=== PATIENT | male | born 1950 | race Caucasian/White ===

== ENCOUNTER 2018-09-12 11:54 | Emergency (ER) | payer OTHER, MEDICARE ==
[~2018-09-12] VITALS: Ht 185.4 cm; Wt 99.8 kg
[~2018-09-12 11:54] MED LIST: DILAUDID4 MG PO; LIPITOR20 MG PO; PHENERGAN25 MG PO
== END 2018-09-12 13:10 | disposition home or self-care (01) ==
LOC: ED 11:54
PROC: 0HQFXZZ Repair Right Hand Skin, External Approach (ICD-10-PCS; principal; 2018-09-12)
DX: S61.411A Laceration without foreign body of right hand, initial encounter (principal); E78.5 Hyperlipidemia, unspecified; Z88.0 Allergy status to penicillin; Z79.899 Other long term (current) drug therapy; W45.8XXA Other foreign body or object entering through skin, initial encounter
CPT/HCPCS: 12002; 99282-25

== ENCOUNTER 2018-09-22 10:20 | Emergency (ER) | payer OTHER, MEDICARE ==
[~2018-09-22] VITALS: Ht 185.4 cm; Wt 99.8 kg
--- OUTSIDE RECORDS SUMMARY | 2018-09-22 10:22 | XMS ---
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 E.D. VISIT COUNT (12 MO.) [address] [facility] TOTAL 2 NOTE: Visits indicate total known visits. ED/UCC VISIT TRACKING (12 MO.) 09/22/2018 10:21 [facility] [place] TYPE: Emergency COMPLAINT: - STITCHES REMOVAL 09/12/2018 11:55 KARLA Simon [place] TYPE: Emergency COMPLAINT: - R THUMB LACERATION DIAGNOSES: - Other foreign body or object entering through skin, initial encounter - Hyperlipidemia, unspecified - Allergy status to penicillin - Laceration without foreign body of right hand, initial encounter - Other buttermaker (current) drug therapy INPATIENT VISIT TRACKING (12 MO.) No inpatient visits to display in this time frame [email or web address]
== END 2018-09-22 10:49 | disposition home or self-care (01) ==
LOC: ED 10:20
DX: Z48.02 Encounter for removal of sutures (principal)

== ENCOUNTER 2019-03-04 07:48 | Day surgery (SDC) | payer OTHER ==
[~2019-03-04] VITALS: Ht 185.4 cm; Wt 99.8 kg
[~2019-03-04 07:48] MED LIST changes: +CRESTOR20 MG PO; +FAMOTIDINE20 MG PO; +FLOMAX0.4 MG PO; +PREDNISONE20 MG PO
--- NOTE | 2019-03-04 09:14 | NUR ---
03/04/19 0914 Fiordaliza Bee 0975 PT ARRIVED TO PACU ON 3L VIA NC, ABD SOFT. PT ENCOURAGED TO PASS GAS. PT REORIENTED TO PACU, PT WAKES EASILY AND EASILY FALLS BACK TO SLEEP. VSS.
--- NOTE | 2019-03-04 10:25 | OR ---
[facility] [address] [place], [place] [address] Signed DATE OF OPERATION: 03/04/2019 SURGEON: Abel Worthington MD PREOPERATIVE DIAGNOSES: 1. Hyperplastic polyps in 2008. 2. Internal hemorrhoids. POSTOPERATIVE DIAGNOSES: 1. Minimal sigmoid diverticulosis. 2. Minimal internal anal skin tags/hemorrhoids. 3. 4-5 mm polyps in cecum, proximal right colon, mid right colon, hepatic flexure, and 95 cm. PROCEDURE: Colonoscopy with hot biopsy. ESTIMATED BLOOD LOSS: None. INDICATIONS: Catalino is a 69-year-old gentleman who comes for followup colonoscopy. He had several small hyperplastic polyps removed back in 2008. He is known to have some internal hemorrhoids. There is no family history of colon cancer or polyps. He has no lower GI complaints. In the office, I gave him a pamphlet on colonoscopy and we reviewed that together. He understands the nature of the test along with the risks including, but not limited to gas, bloating, crampy abdominal pain, bleeding, perforation requiring surgery, and missed diagnosis. He also recalls the need for IV conscious sedation. He had expressed understanding and wished to proceed. PROCEDURE NOTE: Catalino was taken into endoscopy suite and placed in the left lateral decubitus position. He was given a total of 7 mg of Versed and 150 mcg of fentanyl to cover the case. A digital rectal exam was performed. He does have a moderately indurated and swollen prostate. No dominant nodules. The adult colonoscope was introduced and advanced all around into the cecum under direct visualization of camera without difficulty. The scope was slowly withdrawn. His prep was good. We could see the appendiceal orifice and the ileocecal valve. We took pictures throughout for photodocumentation. The above-mentioned polyps were easily removed with the help of hot biopsy forceps. We thought we saw a tiny polyp in the proximal left colon, but with some insufflation, the Electronically Signed By: ABEL WORTHINGTON MD 03/04/19 1025 PATIENT NAME: CATALINO RODRIGUEZ OPERATIVE REPORT DATE OF : 48 REPORT #: [id number] PHYSICIAN: ABEL WORTHINGTON MD PCP: DAVID ROMERO MD REPORT IS CONFIDENTIAL AND NOT TO BE RELEASED WITHOUT AUTHORIZATION [facility] [address] [place] [address] Signed area flattened out and it appeared fine. He does have just a few diverticula in the sigmoid colon. They were [id number] in size, few in number, and scattered about. Once in the rectum, the scope had been retroflexed. He has really small internal anal skin tags and very small internal anal hemorrhoid columns. After this, the gas was suctioned out and colonoscope removed. Catalino tolerated the procedure quite well. RECOMMENDATIONS: I will see Catalino back in my office in 7 to 14 days to review his results. Abel Worthington MD ALB/MELITONL /[id number] cc: MD David Santillan MD Copies: ABEL WORTHINGTON MD ~ Electronically Signed By: ABEL WORTHINGTON MD 03/04/19 1025 PATIENT NAME: CATALINO RODRIGUEZ OPERATIVE REPORT DATE OF : 48 REPORT #: [id number] PHYSICIAN: ABEL WORTHINGTON MD PCP: DAVID ROMERO MD REPORT IS CONFIDENTIAL AND NOT TO BE RELEASED WITHOUT AUTHORIZATION
--- NOTE | 2019-03-04 12:05 | NUR ---
PT ALERT, ORIENTED AND IN FOR ROUTINE SCOPE. PT SEEMS RELAXED, OR STAFF IN TO TAKE PT. EXTENDED A BLESSING, WILL FOLLOW NEEDED
--- NOTE | 2019-03-05 15:38 | PATH ---
[facility] [address] [place], [place] [address] Signed SPECIMEN(S): A PROXIMAL ASCENDING POLYP SPECIMEN(S): B CECAL POLYP SPECIMEN(S): C MID ASCENDING POLYP SPECIMEN(S): D HEPATIC FLEXURE POLYP SPECIMEN(S): E COLON POLYP AT 95 CM SPECIMEN SOURCE: A. PROXIMAL ASCENDING POLYP B. CECAL POLYP C. MID ASCENDING POLYP D. HEPATIC FLEXURE POLYP E. COLON POLYP AT 95 CM CLINICAL HISTORY: Polyps. Post: Divertic. MICROSCOPIC DESCRIPTION: Histologic sections of all submitted blocks are examined by light microscopy. These findings, together with the gross examination, support the pathologic diagnosis. FINAL PATHOLOGIC DIAGNOSIS: A. Proximal ascending polyp, polypectomy: - Fragments of tubular adenoma with abundant cautery artifact. B. Cecal polyp, polypectomy: - Fragments of irritated tubular adenoma. C. Mid ascending polyp, polypectomy: - Tubular adenoma. D. Hepatic flexure polyp, polypectomy: - Tubular adenoma. E. Colon polyp at 95 cm, polypectomy: - Benign colonic mucosa; see comment. - Negative for dysplasia. COMMENT: Deeper levels were evaluated with similar findings. DDF:cml:C2NR GROSS DESCRIPTION: A. The specimen is received in a formalin filled specimen container labeled "ET, #1". Six small pale laughlin biopsies are 0.1-0.3 cm and entirely submitted in cassette (A1). PATIENT NAME: JENNIFERCATALINO MARIFER PATHOLOGY DATE OF : 48 REPORT #: [id number] PHYSICIAN: DOTTY PATHOLOGY PCP: DAVID ROMERO MD REPORT IS CONFIDENTIAL AND NOT TO BE RELEASED WITHOUT AUTHORIZATION [facility] [address] [place], [place] [address] Signed B. The specimen is received in a formalin filled specimen container labeled "ET, #2". Two laughlin biopsies are each 0.3 cm and entirely submitted in cassette (B1). C. The specimen is received in a formalin filled specimen container labeled "ET, #3". A single laughlin biopsy is 0.3 cm and entirely submitted in cassette (C1). D. The specimen is received in a formalin filled specimen container labeled "ET, #4". A single laughlin biopsy is 0.3 cm and entirely submitted in cassette (D1). E. The specimen is received in a formalin filled specimen container labeled "ET, #5". A single laughlin biopsy is 0.2 cm and entirely submitted in cassette (E1). GW (under the direct supervision of a pathologist) The Gross Description was prepared using a voice recognition system. The report was reviewed for accuracy; however, sound-alike word errors, addition and/or deletions may occur. If there is any question about this report, please contact Client Services. PERFORMING LABORATORY: The technical component was performed by [facility], [address] [place] [address] (Engineering Geologist: Bozena Murphy MD; CLIA# [id number]). [facility], [address] [place] [address] (Engineering Geologist: Taiwo Valdes MD; CLIA# [id number]). Diagnostician: Hipolito York DO Pathologist Electronically Signed 03/05/2019 Copies: ~ PATIENT NAME: CATALINO RODRIGUEZ PATHOLOGY DATE OF : 48 REPORT #: [id number] PHYSICIAN: DOTTY PATHOLOGY PCP: DAVID ROMERO MD REPORT IS CONFIDENTIAL AND NOT TO BE RELEASED WITHOUT AUTHORIZATION
== END 2019-03-04 09:55 | disposition home or self-care (01) ==
LOC: OPS 07:48 → DS 10:30 → OPS 10:30
PROVIDERS: Colon & Rectal Surgery
PROC: 0DBH8ZZ Excision of Cecum, Via Natural or Artificial Opening Endoscopic (ICD-10-PCS; 2019-03-04)
PROC: 0DBL8ZZ Excision of Transverse Colon, Via Natural or Artificial Opening Endoscopic (ICD-10-PCS; 2019-03-04)
PROC: 0DBE8ZZ Excision of Large Intestine, Via Natural or Artificial Opening Endoscopic (ICD-10-PCS; 2019-03-04)
PROC: 0DBK8ZZ Excision of Ascending Colon, Via Natural or Artificial Opening Endoscopic (ICD-10-PCS; principal; 2019-03-04 09:00)
DX: Z12.11 Encounter for screening for malignant neoplasm of colon (principal); D12.2 Benign neoplasm of ascending colon; D12.0 Benign neoplasm of cecum; D12.3 Benign neoplasm of transverse colon; K57.30 Diverticulosis of large intestine without perforation or abscess without bleeding; K64.8 Other hemorrhoids; K64.4 Residual hemorrhoidal skin tags; I10 Essential (primary) hypertension; E78.00 Pure hypercholesterolemia, unspecified; E11.9 Type 2 diabetes mellitus without complications; Z86.010 Personal history of colon polyps; Z79.899 Other long term (current) drug therapy; Z79.52 Long term (current) use of systemic steroids; Z98.890 Other specified postprocedural states; Z88.0 Allergy status to penicillin; Z88.5 Allergy status to narcotic agent
CPT/HCPCS: 99153; G0500; J2250; J3010; J7121

== ENCOUNTER 2021-12-25 10:02 | Emergency (ER) | payer OTHER, MEDICARE ==
[~2021-12-25] VITALS: Ht 185.4 cm; Wt 102.0 kg
[2021-12-25] MEDS ORDERED: PROSCAR5 MG PO (10:41)
[2021-12-25] MEDS ORDERED: PERCOCET 5-3251 EACH PO (13:48)
[2021-12-25] MEDS ORDERED: CEFUROXIME500 MG PO (13:48)
[2021-12-25] MEDS ORDERED: ONDANSETRON HCL4 MG PO (13:52)
== END 2021-12-25 14:55 | disposition home or self-care (01) ==
LOC: ED 10:02
DX: N13.2 Hydronephrosis with renal and ureteral calculous obstruction (principal); E78.5 Hyperlipidemia, unspecified; Z88.0 Allergy status to penicillin; Z88.5 Allergy status to narcotic agent; Z79.899 Other long term (current) drug therapy; Z79.52 Long term (current) use of systemic steroids
CPT/HCPCS: 36415; 74176; 80053; 81001; 83690; 85025; 96361; 96365; 96375; 96376; 99284-25; J0696; J1885; J2405; J7030

== ENCOUNTER 2022-05-29 06:50 | Day surgery (SDC) | payer OTHER ==
[~2022-05-29] VITALS: Ht 185.4 cm; Wt 102.3 kg
[~2022-05-29 06:50] MED LIST changes: +CEFUROXIME500 MG PO; +ONDANSETRON HCL4 MG PO; +PERCOCET 5-3251 EACH PO; +PROSCAR5 MG PO; +SULFAMETHOXAZO1 EAC1 PO
--- NOTE | 2022-05-29 10:00 | NUR ---
05/29/22 Liset Aguilar 0954- PT ARRIVES TO PACU NONAROUSABLE TO STIMULI WITH AN OPA IN PLACE. RESP EVEN AND UNLABORED. OXYGEN SAT HIGH 90'S TO 100% ON 10L VIA MASK. PT NEEDING A CHIN LIFT TO MAINTAIN PATENT AIRWAY. 0955- WHEN ATTEMPTING TO REPOSITION PT'S HEAD TO MAINTAIN PATENT AIRWAY WITHOUT CHIN LIFT. THE PT AROUSES. OPA REMOVED. OXYGEN MASK REPLACED AT 6L. 0957- PT PULLING AT HIS OXYGEN MASK. OXYGEN MASK REMOVED TO CALM PT OXYGEN SAT IS HIGH 90'S TO 100% ON THE 6L.
--- NOTE | 2022-05-29 10:37 | NUR ---
1030: PT ARRIVES TO DS TREATMENT ROOM VIA STRETCHER AWAKE AND ALERT. PT DENIES ANY PAIN OR NAUSEA, TOLERATES WATER. PT SPOUSE, MAXINE AT BEDSIDE ON ARRIVAL. DR. MORENO IN TO ASSESS URINE, VERBALLY ORDERS FOR CARUSO CATHETER TO BE REMOVED. WOULD LIKE 180 MLS OF SALINE INSERTED IN TO BLADDER TO HELP WITH URGE TO VOID. CALL LIGHT WITHIN REACH.
--- NOTE | 2022-05-29 10:55 | NUR ---
PT ALERT, ORIENTED AND PATIENTLY WAITING FOR SURGERY. PT HAS HAD SURGERY POSTPONED TWICE BEFORE AND IS READY FOR IT TO HAPPEN. PT HOPES THIS WILL END HIS CHRONIC UTI'S THAT HAVE PLAGUED HIM FOR YEARS. HAD PRAYER WITH PT, [place] AT [place]. WILL FOLLOW
--- NOTE | 2022-05-29 11:08 | NUR ---
1100: 180 ML NS INSTILLED INTO BLADDER VIA CARUSO, PT TOLERATES WELL WITH NO PAIN. CARUSO BALLOON EMPTIED OF 9 MLS CLEAR FLUID AND GENTLY REMOVED. PT ENCOURAGED TO USE CALL LIGHT WITH URGE TO VOID, DC CRITERIA EXPLAINED TO PT AND FAMILY AT BEDSIDE.
--- NOTE | 2022-05-29 13:44 | NUR ---
[id number]: PT UP TO BATHROOM TO VOID, UNSUCCESSFUL AT THIS TIME. PT STATES "I HAVE HAD 8 CUPS OF WATER NOW." PT ADMITS TO FILLING WATER IN ROOM TO HELP VOID. PT BLADDER SCANNED OF [address] MORENO CALLED WHO VERBALLY ORDERS FOR PT TO RECEIVE 20 ESTON[address] 2-WAY CATHETER AND TO RETURN TOMORROW TO HAVE REMOVED AFTER 24 HOURS. 1219: IN TO PLACE CARUSO CATHETER AND PT SHOWS THIS RN URINAL WITH APPROX 100 MLS LIGHT PINK URINE WITH NO CLOTS PRESENT. THIS RN PHONES DR. MORENO AGAIN WHO STATES THAT PT CAN GO HOME WITH OR WITHOUT CATHETER LONG EDUCATION IS PROVIDED THAT IF HE DOES NOT VOID QS BY 1730 THAT HE NEEDS TO RETURN TO EMERGENCY DEPT TO HAVE CARUSO PLACED. PT UNDERSTANDS AND DENIES CATHETER AT THIS TIME. 1240: PT ABLE TO VOID ANOTHER 100MLS LIGHT PINK URINE WITH NO CLOTS PRESENT. PT DRESSES SELF WITH SPOUSE AT BEDSIDE. DC INSTRUCTIONS PRESENTED VERBALLY AND WRITTEN AND PT DC FROM DS TREATMENT ROOM VIA TO HOME.
--- NOTE | 2022-05-30 16:09 | OR ---
[facility] [address] [place], [place] [address] Signed DATE OF OPERATION: 05/29/2022 SURGEON: Isabella Moreno MD PREOPERATIVE DIAGNOSIS: Bilobar prostatic hyperplasia with lower urinary tract symptoms. POSTOPERATIVE DIAGNOSIS: Bilobar prostatic hyperplasia with lower urinary tract symptoms. NAMES OF PROCEDURES: 1. Diagnostic cystoscopy. 2. UroLift implantation. ANESTHESIA: General. ESTIMATED BLOOD LOSS: 20 mL. COMPLICATIONS: None. SPECIMENS: None. DRAINS: A 20-Cymraes two-way Israel catheter, connected to gravity drainage. INDICATIONS FOR PROCEDURE: Mr. Rodriguez is a very pleasant 72-year-old gentleman, who is well-known to me. He has a history of high-grade bladder cancer along with active BPH with LUTS for which he currently takes both Flomax and finasteride. He underwent cystoscopy late last year, which revealed moderate lateral lobe hypertrophy with a mildly elevated bladder neck. There is no evidence of median lobe at the time. The patient does experience active lower urinary tract symptoms, so he was offered UroLift implantation once his bladder tumor was removed. He is anticipating intravesical BCG treatment approximately three months after his UroLift placement today. After discussion of risks and benefits of the UroLift implantation, the patient has agreed to proceed. Electronically Signed By: ISABELLA MORENO MD 05/30/22 1609 PATIENT NAME: CATALINO RODRIGUEZ OPERATIVE REPORT DATE OF : 48 REPORT #: [id number] PHYSICIAN: ISABELLA MORENO MD PCP: DAVID ROMERO MD REPORT IS CONFIDENTIAL AND NOT TO BE RELEASED WITHOUT AUTHORIZATION [facility] [address], [place] [address] Signed OPERATIVE FINDINGS: 1. Digital rectal examination reveals a 55 g gland that is soft, smooth and symmetric with no focal nodules. 2. Diagnostic cystoscopy reveals grade 3 bladder wall trabeculation. However, there is no evidence of any active bladder masses or lesions. Bilateral ureteral orifices are in their normal anatomic location. 3. Ureteroscopy reveals moderate lateral lobe stenosis with no evidence of a median lobe. He does have mild bladder neck elevation. The prostate tissue is a bit friable with manipulation. 4. The UroLift implant was placed in the standard procedure, with a total of two implants placed on the right and three implants on the left. The implants were placed approximately 1.5 cm from the bladder neck and they were spaced evenly from that point to the level of the verumontanum. DESCRIPTION OF PROCEDURE: After informed consent was obtained, the patient was taken back to the operating room. He was correctly identified with a surgical pause after general anesthesia was induced. Details of the procedure and laterality were confirmed. His genitalia were prepped and draped in a standard sterile fashion. A 20-Cymraes cystoscope was inserted into the urethral meatus, guided by visual obturator. Inspection of the prostatic urethra was notable for the obstruction present as a result of the enlarged lateral lobes. The visual obturator was replaced with a UroLift 2 system delivery device. The 1st treatment site was the patient's left side, approximately 1.5 cm distal to the bladder neck. UroLift 2 implantation steps were completed as indicated in the product documentation. The capsular tab was successfully deployed, the urethral end-piece was successfully affixed to the suture, and the suture was cut. The delivery device was then readvanced into the bladder and then removed from the sheath and the patient. The implant cartridge was removed from the delivery device, replaced with the scope seal, and the assembled device was reinserted. The implant located and opening effect was confirmed cystoscopically. The same steps of the procedure were then performed on the right side, approximately 1.5 cm from the bladder neck, followed by two additional implants just proximal to the verumontanum, one on the right and one on the left side of the prostate, following the indicated implantation technique. In all, a total of two implants were placed on the right and three implants were placed on the left. A final cystoscopy was conducted, 1st to inspect the location and state of each implant, and 2nd to confirm the presence of a continuous anterior channel from the verumontanum to bladder neck. Because there was a mild amount of bleeding present after the procedure, the decision was made to insert an indwelling Israel catheter. A 20-Cymraes two-way Israel catheter was inserted into the patient's bladder and was manually flushed multiple times. The catheter was then connected to gravity drainage. The procedure was then terminated. The patient tolerated the procedure well without any complication. He will now be transferred to the postanesthesia care unit in stable condition. Electronically Signed By: ISABELLA MORENO MD 05/30/22 1609 PATIENT NAME: CATALINO RODRIGUEZ OPERATIVE REPORT DATE OF : 48 REPORT #: [id number] PHYSICIAN: ISABELLA MORENO MD PCP: DAVID ROMERO MD REPORT IS CONFIDENTIAL AND NOT TO BE RELEASED WITHOUT AUTHORIZATION [address] [address] Signed DISPOSITION: I discussed the details of today's procedure with the patient's and answered all of her questions. He has been instructed to finish out his existing Bactrim Double Strength oral antibiotic prescription for the next few days. He was also given prescriptions for Pyridium 200 mg up to t.i.d. p.r.n. dysuria and oxycodone 5 mg one tablet p.o. q.6 hours p.r.n. pain, dispense #10. We will keep an eye on his urine today and hopefully remove the indwelling Israel catheter before his discharge today. If not, he will be sent home with the Israel catheter gravity drainage and will remove the catheter himself tomorrow with proper instruction. He has been scheduled to return to clinic in approximately two weeks with a PVR for his 1st postoperative visit. MD LUNA Alegre/MARCELLA /[id number] Copies: ~ Electronically Signed By: ISABELLA MORENO MD 05/30/22 1609 PATIENT NAME: CATALINO RODRIGUEZ OPERATIVE REPORT DATE OF : 48 REPORT #: [id number] PHYSICIAN: ISABELLA MORENO MD PCP: DAVID ROMERO MD REPORT IS CONFIDENTIAL AND NOT TO BE RELEASED WITHOUT AUTHORIZATION
== END 2022-05-29 13:02 | disposition home or self-care (01) ==
LOC: DS 06:50
PROVIDERS: ATTEND Urology
PROC: 0T7D8DZ Dilation of Urethra with Intraluminal Device, Via Natural or Artificial Opening Endoscopic (ICD-10-PCS; principal; 2022-05-29 08:30)
DX: N40.1 Benign prostatic hyperplasia with lower urinary tract symptoms (principal); N13.8 Other obstructive and reflux uropathy; R39.14 Feeling of incomplete bladder emptying; N20.0 Calculus of kidney; N20.1 Calculus of ureter
CPT/HCPCS: 81001; J0690; J1100; J1885; J2250; J2405; J2704; J2765; J3010; J7121

== ENCOUNTER 2024-06-10 07:06 | Day surgery (SDC) | payer OTHER ==
[~2024-06-10] VITALS: Ht 185.4 cm; Wt 101.2 kg
[~2024-06-10 07:06] MED LIST changes: +CRESTOR10 MG PO; +IBLOOD GLUCOSE TEST STRIP 1 EA TEST VI PRN; +LACTATED RINGER'S 1,000 ML IV SCH; +LIDOCAINE HCL 1% 5 ML SDV INJ ONE; +MIDAZOLAM HCL 5 MG/5 ML VIAL IV PRN; +ROSUVASTATIN CA20 MG PO; +fentaNYL citrate 100 MCG/2 ML VIAL IV PRN
[2024-06-10 07:23] VITALS: BP 117/76
--- NOTE | 2024-06-10 07:45 | NUR ---
VISITED DURING SPIRITUAL CARE ROUNDS. PT IN OVERALL GOOD SPIRITS, NO IMMEDIATE NEEDS. THEATER TECHNICIAN PROVIDED SUPPORTIVE PRESENCE, HOSPITALITY, PRAYER, FACILITATED INTERACTION WITH THERAPY ANIMAL. PT EXPRESSED GRATITUDE.
[2024-06-10] MEDS ORDERED: MIDAZOLAM HCL 5 MG/5 ML VIAL ONE (08:04)
[2024-06-10] MEDS ORDERED: fentaNYL citrate 100 MCG/2 ML VIAL ONE (08:04)
--- NOTE | 2024-06-10 08:52 | NUR ---
06/10/24 0852 Esha Tena 0842 PT ARRIVED IN PACU SLEEPY. ABD SOFT AND PASSING FLATUS.
[2024-06-10 09:18] VITALS: BP 96/69
--- NOTE | 2024-06-10 10:36 | OR ---
[facility] [address] [place], [place] [address] Signed DATE OF OPERATION: 06/10/2024 SURGEON: Abel Worthington MD PREOPERATIVE DIAGNOSES: 1. Personal history of adenomatous polyps in 2019 at age 69. 2. Internal hemorrhoids. 3. Internal anal skin tags. 4. Diverticulosis. 5. Positive Cologuard test in the summer of 2023. POSTOPERATIVE DIAGNOSES: 1. Minimal internal hemorrhoids. 2. Minimal internal anal skin tags. 3. Minimal to moderate left-sided diverticulosis. 4. 4 mm polyp at 15 cm in rectum. 5. 4 mm polypoid lesion at 45 cm in the left colon. PROCEDURE: Colonoscopy with hot biopsy. ESTIMATED BLOOD LOSS: None. INDICATIONS: Catalino is a 74-year-old gentleman, asked to see me for a followup colonoscopy. He describes a negative sigmoidoscopy and a negative barium enema when he was younger. He had a colonoscopy in 2008 at the age of 58 with myself. He had several tiny hyperplastic polyps removed. He had done well with Versed and fentanyl. He had minimal internal hemorrhoids. We asked him to follow up in 10 years. He came in 2019 at the age of 69. He had three small tubular adenomatous polyps removed, all under 5 mm in diameter. He had the internal hemorrhoids along with some minimal internal anal skin tags. He had some sigmoid diverticulosis as well. He did well with 7 mg of Versed and 50 mcg of fentanyl. We asked him to follow up in 5 years. Last summer, he had a positive Cologuard test. He has no family history of colon cancer or polyps. He has no lower GI complaints currently. In the office, I gave him a pamphlet on colonoscopy. He recalls the nature of the test. There is risk including, but not limited to gas bloating, crampy abdominal pain, bleeding, perforation requiring surgery and missed diagnosis. We also reviewed the written instructions for a bowel prep line by line. He has been on the same bowel prep now several times. He recalls the need for IV conscious Electronically Signed By: ABEL WORTHINGTON MD 06/10/24 1036 PATIENT NAME: CATALINO RODRIGUEZ OPERATIVE REPORT DATE OF : 48 REPORT #: [id number] PHYSICIAN: ABEL WORTHINGTON MD PCP: TANYA DEL REAL MD REPORT IS CONFIDENTIAL AND NOT TO BE RELEASED WITHOUT AUTHORIZATION [facility] [address] [place], [place] [address] Signed sedation. He understands an adult person has to take him home afterwards. He had expressed understanding and wished to proceed. DESCRIPTION OF PROCEDURE: Catalino was taken into our endoscopy suite and placed in the left lateral decubitus position. He was given 6 mg of Versed and 100 mcg of fentanyl to cover the case. A digital rectal exam was performed. He had good sphincter tone. No external hemorrhoids. No masses. The adult colonoscope was introduced and advanced under direct visualization of the camera without difficulty. His prep was quite excellent. We could easily see the appendiceal orifice and the ileocecal valve. The scope was then slowly withdrawn. We took out two small polyps as mentioned above with the help of hot biopsy forceps. He does have some diverticula in the left and sigmoid colon. They are minimal to moderate in size, minimal to moderate in number and scattered about. In the rectum, the scope was retroflexed. He just has very minimal internal hemorrhoid tissue and several small internal anal skin tags. After this, the gas was suctioned out and the colonoscope removed. Catalino tolerated the procedure quite well. RECOMMENDATIONS: I will see Catalino back in my office in 7 to 14 days to review his biopsy results. He will likely be on the five year rotation. Once he is within 10 years the end of his life, then he can discontinue colonoscopies. Abel Worthington MD ALB/MODL /[id number] cc: MD Dr. Lori Santillan Copies: ABEL WORTHINGTON MD ~ Electronically Signed By: ABEL WORTHINGTON MD 06/10/24 1036 PATIENT NAME: CATALINO RODRIGUEZ OPERATIVE REPORT DATE OF : 48 REPORT #: [id number] PHYSICIAN: ABEL WORTHINGTON MD PCP: TANYA DEL REAL MD REPORT IS CONFIDENTIAL AND NOT TO BE RELEASED WITHOUT AUTHORIZATION
--- NOTE | 2024-06-12 14:27 | PATH ---
[facility] [address] [facility] [place], [place] [address] Signed SPECIMEN(S): A RECTAL POLYP AT 15 CM SPECIMEN(S): B DESCENDING COLON POLYP AT 45 CM SPECIMEN SOURCE: A. RECTAL POLYP AT 15 CM B. DESCENDING COLON POLYP AT 45 CM CLINICAL HISTORY: BX: Polyps/diverticulosis/internal hemorrhoids, post: Polyps FINAL PATHOLOGIC DIAGNOSIS: A. Rectal polyp at 15 cm: - Hyperplastic polyp (one fragment). B. Descending colon polyp at 45 cm: - Hyperplastic polyp (one fragment). JVR:clv MICROSCOPIC EXAMINATION: Histologic sections of all submitted blocks are examined by light microscopy. These findings, together with the gross examination, support the pathologic diagnosis. GROSS DESCRIPTION: A. The specimen, labeled and designated "Mandie, E, rectal polyp at 15 cm," is received in formalin and consists of one laughlin soft tissue fragment, 0.3 cm. Entirely submitted in (A1). B. The specimen, labeled and designated "Mandie, E, descending colon polyp at 5 cm," is received in formalin and consists of one laughlin soft tissue fragment, 0.4 cm. Entirely submitted in (B1). AB (under the direct supervision of a pathologist) The Gross Description was prepared using a voice recognition system. The report was reviewed for accuracy; however, sound-alike word errors, addition and/or deletions may occur. If there is any question about this report, please contact Client Services. PERFORMING LABORATORY: Technical component was performed by [facility], [address] [place] [address] (CLIA# [id number]). Professional interpretation was performed by [facility], [address] [place] [address], [place] [address] (CLIA#: [id number]). PATIENT NAME: CATALINO RODRIGUEZ PATHOLOGY DATE OF : 48 REPORT #: [id number] PHYSICIAN: [facility] PCP: TANYA DEL REAL MD REPORT IS CONFIDENTIAL AND NOT TO BE RELEASED WITHOUT AUTHORIZATION [address] [address] Signed Diagnostician: Ryder Mcdermott MD Pathologist Electronically Signed 06/12/2024 Copies: ~ PATIENT NAME: CATALINO RODRIGUEZ PATHOLOGY DATE OF : 48 REPORT #: [id number] PHYSICIAN: [facility] PATHOLOG[facility] PCP: TANYA DEL REAL MD REPORT IS CONFIDENTIAL AND NOT TO BE RELEASED WITHOUT AUTHORIZATION
== END 2024-06-10 09:26 | disposition home or self-care (01) ==
LOC: DS 07:06
PROVIDERS: ATTEND Colon & Rectal Surgery
PROC: 0DBP8ZX Excision of Rectum, Via Natural or Artificial Opening Endoscopic, Diagnostic (ICD-10-PCS; 2024-06-10)
PROC: 0DBM8ZX Excision of Descending Colon, Via Natural or Artificial Opening Endoscopic, Diagnostic (ICD-10-PCS; principal; 2024-06-10 08:15)
DX: K64.8 Other hemorrhoids (principal); K64.4 Residual hemorrhoidal skin tags; K57.30 Diverticulosis of large intestine without perforation or abscess without bleeding; K62.1 Rectal polyp; K63.5 Polyp of colon; R19.5 Other fecal abnormalities; M35.3 Polymyalgia rheumatica; C67.4 Malignant neoplasm of posterior wall of bladder; E78.2 Mixed hyperlipidemia; N40.1 Benign prostatic hyperplasia with lower urinary tract symptoms; R39.14 Feeling of incomplete bladder emptying; E11.9 Type 2 diabetes mellitus without complications; I10 Essential (primary) hypertension; M17.0 Bilateral primary osteoarthritis of knee; Z86.0101 Personal history of adenomatous and serrated colon polyps; Z87.891 Personal history of nicotine dependence; Z79.52 Long term (current) use of systemic steroids; Z79.899 Other long term (current) drug therapy; Z88.0 Allergy status to penicillin; Z88.8 Allergy status to other drugs, medicaments and biological substances
CPT/HCPCS: 88305; 99153; G0500; J2250; J3010; J7121

== ENCOUNTER 2025-03-02 09:53 | Day surgery (SDC) | payer OTHER ==
[~2025-03-02] VITALS: Ht 185.4 cm; Wt 98.0 kg
[~2025-03-02 09:53] MED LIST changes: +CEFAZOLIN SODIUM 2 GM in SODIUM CHLORIDE 0.9% 100 ML IV SCH; -FLOMAX0.4 MG PO; +HYDROCODONE/ACETA 5/325 TAB PO PRN; +HYDROmorphone HCL 1 MG/ML SYR IV PRN; +HYOSCYAMINE SULFATE 0.375 MG TAB.ER.12H PO PRN; -MIDAZOLAM HCL 5 MG/5 ML VIAL IV PRN; +OXYCODONE/APAP 5/325 TAB PO PRN; +PHENAZOPYRIDINE HCL 100 MG TAB PO ONE; +SEVOFLURANE 250 ML BTL INH ONE; +TAMSULOSIN HCL0.4 MG PO; -fentaNYL citrate 100 MCG/2 ML VIAL IV PRN; +mitoMYcin 40 MG/20 ML VIAL BLADIN SCH
[2025-03-02 10:17] VITALS: BP 117/74
--- NOTE | 2025-03-02 10:37 | NUR ---
NO ONE WAITING. IS COMFORTABLE.
--- NOTE | 2025-03-02 11:11 | NUR ---
1055 STATES COMFORTABLE DENIES ANY NEEDS. IV PATENT.
--- NOTE | 2025-03-02 12:35 | NUR ---
1155 RESTS QUIETLY EYES CLOSED RESP EVEN IV PATENT.
[2025-03-02] MEDS ORDERED: ROCURONIUM BROMIDE 50 MG/5 ML SYR ONE (12:59)
[2025-03-02] MEDS ORDERED: DEXAMETHASONE SOD PHOS 4 MG/ML VIAL ONE (12:59)
[2025-03-02] MEDS ORDERED: LIDOCAINE HCL 2% 5 ML SDV ONE (12:59)
[2025-03-02] MEDS ORDERED: KETOROLAC TROMETHAMINE 30 MG/ML VIAL ONE (12:59)
[2025-03-02] MEDS ORDERED: SUGAMMADEX SODIUM 200 MG/2 ML ML ONE (12:59)
[2025-03-02] MEDS ORDERED: fentaNYL citrate 100 MCG/2 ML VIAL ONE (12:59)
[2025-03-02] MEDS ORDERED: IBLOOD GLUCOSE TEST STRIP 1 EA TEST VI PRN (13:30)
[2025-03-02] MEDS ORDERED: HYDROmorphone HCL 1 MG/ML SYR IV PRN (13:30)
[2025-03-02] MEDS ORDERED: PROCHLORPERAZINE EDISYLATE 10 MG/2 ML VIAL IV PRN (13:30)
[2025-03-02] MEDS ORDERED: fentaNYL citrate 50 MCG/ML SDV IV PRN (13:30)
[2025-03-02] MEDS ORDERED: NALOXONE HCL 0.4 MG SYR IV PRN (13:30)
--- NOTE | 2025-03-02 14:50 | NUR ---
03/02/25 1450 Alicia Smith 1446: PT ARRIVES TO PACU NON AROUSAL. PT CONNECTED TO MONITORS. REPORT RECEIVED FROM OR RNA ND ORAL PATHOLOGIST.
[2025-03-02 15:28] VITALS: BP 103/54
--- NOTE | 2025-03-02 15:32 | NUR ---
CALL LIGHT GIVEN,
--- NOTE | 2025-03-02 15:46 | NUR ---
1538 PT SUPINE CATHETER UNPLUGGED AND DRAINED APPROX 100MLS PURPLISH FLUID 10MLS REMOVED FROM BALLOON CATHETER DCD. ALL PLACED IN YELLOW CHEMO BAGS AND BOXES. TOLERATED WELL. AT BS. WATER AND CRACKERS GIVEN.
[2025-03-02 16:32] VITALS: BP 120/72
--- NOTE | 2025-03-02 16:50 | NUR ---
SAID PT DIDNT HAVE TO VOID JUST LET HIM KNOW IF NO VOID AFTER 6 HRS GO TO E.D. REVIEW OF ALL COMPUTER PRINT OUTS AND MITOMYCIN SHEET WITH PT AND . NO QUESTIONS. TO RE READ AT HOME. DCD PER WC.
--- NOTE | 2025-03-02 16:51 | NUR ---
HAS DENIED PAIN ALL OF POST OP.
--- NOTE | 2025-03-05 14:53 | PATH ---
[facility] [address] [place], [place] [address] Signed SPECIMEN(S): A BLADDER LESION SPECIMEN SOURCE: A. 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 COMMENT: As part of the [facility] [employer] [facility], the case has been reviewed by a second Pathologist ([email or web address]). The history of high-grade papillary urothelial carcinoma is noted. J MICROSCOPIC EXAMINATION: Histologic sections of all submitted blocks are examined by light microscopy. These findings, together with the gross examination, support the pathologic diagnosis. CK5 and CK20 immunostains are performed with appropriate controls on block A1 and supports the diagnosis. JVR GROSS DESCRIPTION: The specimen, labeled and designated "Jennifer, bladder lesion," is received in formalin and consists of five laughlin soft tissue fragments, ranging from 0.3-0.5 cm. Entirely submitted in (A1). VB (under the direct supervision of a pathologist) The Gross Description was prepared using a voice recognition system. The report was reviewed for accuracy; however, sound-alike word errors, addition and/or deletions may occur. If there is any question about this report, please contact Client Services. ADDITIONAL NOTES: Immunohistochemical and/or in situ hybridization studies if performed in this case included appropriate positive controls that reacted as expected. This test was developed and its performance characteristics determined by [facility]. It has not been cleared or approved by the U.S. Food and Drug Administration. The FDA has determined that PATIENT NAME: JENNIFER,CATALINO MARIFER PATHOLOGY DATE OF : 48 REPORT #: [id number] PHYSICIAN: [facility] PCP: LEOENL BOWEN MD REPORT IS CONFIDENTIAL AND NOT TO BE RELEASED WITHOUT AUTHORIZATION [address], [place] [address] Signed such clearance or approval is not necessary. This test is used for clinical purposes. It should not be regarded as investigational or for research. [facility] is certified under the Clinical Laboratory Improvement Amendments of 1988 (CLIA) as qualified to perform high complexity clinical laboratory testing. PERFORMING LABORATORY: Technical component was performed by [facility], [address] [place] [id number] (CLIA# [id number]). Professional interpretation was performed by [facility] - [place] [facility] - [address] [place] [id number] (CLIA#: [id number]). Diagnostician: Ryder Mcdermott MD Pathologist Electronically Signed 03/05/2025 Copies: ~ PATIENT NAME: CATALINO RODRIGUEZ PATHOLOGY DATE OF : 48 REPORT #: [id number] PHYSICIAN: [facility] PCP: ANDRÉS,LEONEL MD REPORT IS CONFIDENTIAL AND NOT TO BE RELEASED WITHOUT AUTHORIZATION
== END 2025-03-02 16:40 ==
LOC: DS 09:53 → OPS 09:53 → DS 11:15 → OPS 16:40
PROVIDERS: ATTEND Urology
PROC: 3E0M305 Introduction of Other Antineoplastic into Peritoneal Cavity, Percutaneous Approach (ICD-10-PCS; 2025-03-02)
PROC: 0TBB8ZZ Excision of Bladder, Via Natural or Artificial Opening Endoscopic (ICD-10-PCS; principal; 2025-03-02 11:15)
DX: D41.4 Neoplasm of uncertain behavior of bladder (principal); N32.9 Bladder disorder, unspecified; C67.4 Malignant neoplasm of posterior wall of bladder; N32.3 Diverticulum of bladder; Z88.0 Allergy status to penicillin; Z88.8 Allergy status to other drugs, medicaments and biological substances
CPT/HCPCS: 00910; 88305; 88341; 88342; J0688; J1100; J1885; J2003; J2405; J2704; J3010; J3490; J7121; J9280